=== PATIENT | male | born 1980 | race African-American/Black ===

== ENCOUNTER 2020-04-02 22:35 | Emergency (ER) | payer MEDICAID ==
[~2020-04-02] VITALS: Ht 180.3 cm; Wt 80.0 kg
[2020-04-02 22:43] VITALS: BP 155/102
== END 2020-04-03 00:40 | disposition left against medical advice (07) ==
LOC: ER 23:45
DX: Z53.21 Procedure and treatment not carried out due to patient leaving prior to being seen by health care provider (principal)